=== PATIENT | male | born 1965 | race Caucasian/White ===

== ENCOUNTER 2020-05-01 10:17 | Emergency (ER) | payer OTHER, SELFPAY ==
[2020-05-01 10:26] VITALS: BP 134/78; PULSE 64; RESP 14; TEMP 36.6; O2SAT 95; BMI 35.0
--- NOTE | 2020-05-01 10:45 | XRR_ITS ---
PROCEDURE INFORMATION: Exam: XR Chest, 1 View Exam date and time: 05/01/2020 10:46 AM Age: 54 years old Clinical indication: Chest pain; Type not specified TECHNIQUE: Imaging protocol: XR of the chest Views: 1 view. COMPARISON: No relevant prior studies available. FINDINGS: Lungs: Unremarkable. No consolidation. Pleural space: Unremarkable. No pleural effusion. No pneumothorax. Heart/Mediastinum: Unremarkable. No cardiomegaly. Bones/joints: No acute findings. XR/XR chest 1V portable [id number] IMPRESSION: No acute findings.
--- NOTE | 2020-05-01 10:45 | ED_ITS ---
HPI - Chest Pain General: Chief Complaint: Chest Pain Stated Complaint: Chest Pain Time Seen by Provider: 05/01/20 10:44 History of Present Illness: HPI narrative: 54-year-old male presents with complaints of left-sided chest pain. Not had any radiation of the chest pain he had over the weekend. He did get some nausea with it no diaphoresis no shortness of breath no vomiting. Is not previously had any chest pain or evaluation for cardiac issues. MD complaint: chest pain Onset (ago): day(s) Timing of current episode: episodic and now resolved Onset: during rest and during exertion Pain location: left chest Pain radiation: none Severity: mild Quality: tightness and heaviness Relieving factors: nothing Exacerbating factors: nothing Associated symptoms: Deny abdominal pain, diaphoresis, dyspnea, fever(s), leg edema, nausea, palpitations, sense of impending doom, syncope or vomiting Treatment prior to arrival: none Review of Systems Const: Denies: fever(s) or diaphoresis ENMT: Denies: throat pain, ear or mastoid pain, nasal discharge or nasal congestion Card: Denies: palpitations or syncope Resp: Denies: dyspnea GI: Denies: abdominal pain, nausea or vomiting : Denies: flank pain, dysuria, urinary frequency or urinary urgency Skin/Breast: Denies: rash or pruritus Physical Exam Const: COMMON NORMALS: no acute distress GENERAL APPEARANCE: cooperative and comfortable ORIENTATION/CONSCIOUSNESS: Yes awake, Yes oriented to person, Yes oriented to place and Yes oriented to time HENMT: COMMON NORMALS: normocephalic, atraumatic and hearing grossly normal bilaterally HEAD & SCALP: normocephalic and atraumatic Eye: COMMON NORMALS: Equal, round and reactive pupils present, EOMs intact bilaterally, conjunctivae normal and no scleral icterus CONJUNCTIVA: Yes conjunctivae normal PUPIL: Yes Equal, round and reactive pupils present Neck/C-Spine: COMMON NORMALS: full ROM, no lymphadenopathy, supple and no JVD Lymph: LYMPHATIC: no lymphadenopathy noted and no lymphedema noted Resp: COMMON NORMALS: normal respiratory effort, No retractions, No use of accessory muscles and clear to auscultation bilaterally AUSCULTATION: clear to auscultation bilaterally Cardio: COMMON NORMALS: no JVD, regular rate, regular rhythm and No murmurs present (Cardio) RATE: regular rate RHYTHM: regular rhythm GI: COMMON NORMALS: Soft to palpation and No hepatosplenomegaly present AUSCULTATION: Yes normoactive bowel sounds PALPATION: Yes Soft to palpation, No Tenderness to palpation present (GI), No Guarding due to palpation present (GI) and Yes No hepatosplenomegaly present Extremity: COMMON NORMALS: normal to inspection, capillary refill normal, no clubbing, cyanosis or edema, no calf tenderness and no pedal edema Neuro: SENSORIUM/ORIENTATION: Yes oriented to person, Yes oriented to place and Yes oriented to time Skin: COMMON NORMALS: no rashes or lesions noted GENERAL SKIN EXAM: no rashes or lesions noted Course Vital Signs: Vital signs: Vital Signs Temperature 97.9 F 05/01/20 10:26 Pulse Rate 78 05/01/20 14:34 Respiratory Rate 15 05/01/20 14:34 Blood Pressure 145/78 05/01/20 14:34 Pulse Oximetry 97 05/01/20 14:34 MDM - Chest Pain MDM Narrative: Medical decision making narrative: Delta troponin does not indicate any acute event. We will go ahead and discharge patient home set up for outpatient stress testing did asked patient continue his current medications as well as a baby aspirin daily return if has any further problems follow-up with his primary care doctor after stress testing Lab Data: Labs: Lab Results 05/01/20 05/01/20 05/01/20 Range/Units 10:40 10:40 10:40 WBC 6.1 (4.0-10.0) 10^3/ uL RBC 4.62 (4.1-5.3) 10^6/u L Hgb 13.8 (11.7-16.6) g/dL Hct 43.0 (42.0-52.0) % MCV 93.1 (80-94) fL MCH 29.9 (28.0-34.0) pg MCHC 32.1 (30.0-36.0) g/dL RDW 12.8 (12.1-15.1) % Plt Count 207 (130-400) 10^3/c mm MPV 11.2 H (7.4-10.4) fL Neut % (Auto) 52.3 % Lymph % (Auto) 33.8 % [place] % (Auto) 11.6 % Eos % (Auto) 1.3 % Baso % (Auto) 0.8 % Neut # (Auto) 3.17 (1.8-7.7) 10^3/u L Lymph # (Auto) 2.1 (0.8-4.8) 10^3/u L [place] # (Auto) 0.7 (0.2-0.9) 10^3/u L Eos # (Auto) 0.1 (0.0-0.8) 10^3/u L Baso # (Auto) 0.1 (0.0-0.1) 10^3/u L Nucleated RBC % (a uto) 0 % Nucleated RBCs # 0.0 /100WBC Sodium Cancelled Potassium Cancelled Chloride Cancelled Carbon Dioxide Cancelled Anion Gap Cancelled BUN Cancelled Creatinine Cancelled GFR Calculation Cancelled Glucose Cancelled Calculated Osmolal ity Cancelled Calcium Cancelled Total Bilirubin Cancelled AST Cancelled ALT Cancelled Alkaline Phosphata se Cancelled Troponin T Baselin e Cancelled Troponin T 120 Min elim ira (0-15) ng/L Delta Troponin T (0-10) ABS# Total Protein Cancelled Albumin Cancelled Globulin Cancelled Lipase Cancelled 05/01/20 05/01/20 05/01/20 Range/Units 11:45 11:45 13:40 WBC (4.0-10.0) 10^3/ uL RBC (4.1-5.3) 10^6/u L Hgb (11.7-16.6) g/dL Hct (42.0-52.0) % MCV (80-94) fL MCH (28.0-34.0) pg MCHC (30.0-36.0) g/dL RDW (12.1-15.1) % Plt Count (130-400) 10^3/c mm MPV (7.4-10.4) fL Neut % (Auto) % Lymph % (Auto) % [place] % (Auto) % Eos % (Auto) % Baso % (Auto) % Neut # (Auto) (1.8-7.7) 10^3/u L Lymph # (Auto) (0.8-4.8) 10^3/u L [place] # (Auto) (0.2-0.9) 10^3/u L Eos # (Auto) (0.0-0.8) 10^3/u L Baso # (Auto) (0.0-0.1) 10^3/u L Nucleated RBC % (a uto) % Nucleated RBCs # /100WBC Sodium 140 Potassium 4.0 Chloride 104 Carbon Dioxide 26 Anion Gap 14.0 BUN 16 Creatinine 0.9 GFR Calculation 87.9 L Glucose 93 Calculated Osmolal ity 291 Calcium 9.4 Total Bilirubin 0.2 AST 28 ALT 32 Alkaline Phosphata se 59 Troponin T Baselin e 8 Troponin T 120 Min elim ira 6.12 (0-15) ng/L Delta Troponin T -1.88 L (0-10) ABS# Total Protein 6.8 Albumin 4.1 Globulin 2.7 Lipase 52 Discharge Plan Discharge Patient Disposition: Home Clinical Impression: Atypical chest pain Condition: Stable Prescriptions: No Action Lipitor 20 mg Tablet 10 mg PO QPM RF: 0 Prozac 10 mg Capsule 10 mg PO DAILY RF: 0 hydrochlorothiazide 25 mg Tablet 25 mg PO DAILY RF: 0 albuterol sulfate 90 mcg/actuation Hfa Aerosol Inhaler 2 puff INHALATION QID PRN (Reason: Shortness Of Breath) RF: 0 Celebrex 100 mg Capsule 100 mg PO DAILY PRN (Reason: unknown) RF: 0 budesonide-formoterol 160-4.5 mcg/actuation Hfa Aerosol Inhaler 2 puff INHALATION BID RF: 0 Vitamin D3 1 cap PO DAILY RF: 0 aspirin See Rx Instructions .ROUTE .COMPLEX RF: 0 Discharge Orders: Discharge Order (Routine); Ordered 05/01/20 Ordered By: Rl West Discharge Diet: Usual diet Discharge Activity: Limit activity as instructed Activity Restrictions/Additional Instructions: With exertional activity. Continue aspirin. Case management will call to set you up for stress test. Discharge Date/Time: 05/01/20 14:34 Coding Level of Care Code ED Groundskeeping Maintenance for Mitch Kelly
--- NOTE | 2020-05-01 10:45 | ECG_ITS ---
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 Measurements Intervals [place] Rate: 86 P: 26 MS: 170 QRS: -2 QRSD: 87 T: 8 QT: 267 QTc: 321 Interpretive Statements SINUS RHYTHM WITH OCCASIONAL VENTRICULAR PREMATURE COMPLEXES WITH FREQUENT SUPRAVENTRICULAR PREMATURE COMPLEXES NONSPECIFIC T-WAVE ABNORMALITY ABNORMAL RHYTHM ECG No previous ECG available for comparison Electronically Signed On 05-01-2020 21:40:09 CDT by Hayden Wiley M.D. [id number]
[2020-05-01 10:58] LABS: Basophils # 0.1 10^3/uL (0.0-0.1); Basophils % 0.8 %; Eosinophils # 0.1 10^3/uL (0.0-0.8); Eosinophils % 1.3 %; Hemoglobin 13.8 g/dL (11.7-16.6); Lymphocytes # 2.1 10^3/uL (0.8-4.8); Lymphocytes % 33.8 %; Mean Corpuscular HGB Conc 32.1 g/dL (30.0-36.0); Mean Corpuscular Hemoglobin 29.9 pg (28.0-34.0); Mean Corpuscular Volume 93.1 fL (80-94); Mean Platelet Volume 11.2 fL (7.4-10.4); Monocytes # 0.7 10^3/uL (0.2-0.9); Monocytes % 11.6 %; Neutrophils # 3.17 10^3/uL (1.8-7.7); Neutrophils % 52.3 %; Nucleated Red Blood Cells % 0 %; Platelet Count 207 10^3/cmm (130-400); Red Blood Count 4.62 10^6/uL (4.1-5.3); Red Cell Distribution Width 12.8 % (12.1-15.1); White Blood Count 6.1 10^3/uL (4.0-10.0)
[2020-05-01 12:02] VITALS: BP 132/66; PULSE 86; RESP 20; O2SAT 97
[2020-05-01 12:27] LABS: Alanine Aminotransferase 32 U/L (0-41); Albumin Level 4.1 g/dL (3.5-5.2); Alkaline Phosphatase 59 IU/L (40-130); Aspartate Amino Transferase 28 U/L (0-40); Blood Urea Nitrogen 16 mg/dL (6-20); Calcium 9.4 mg/dL (8.5-10.5); Carbon Dioxide 26 mmol/L (22-29); Chloride 104 mmol/L (98-107); Globulin 2.7 g/dL (1.3-4.6); Glomerular Filtration Rate 87.9 mL/min (90-130); Glucose 93 mg/dL (65-115); Lipase 52 U/L (13-60); Osmolality Calculated 291 mOsm/kg (285-295); Sodium 140 mmol/L (136-145); Total Bilirubin 0.2 mg/dL (0.15-1.2); Total Protein 6.8 g/dL (6.6-8.7); Troponin(5th) Baseline 8 ng/L (0-15)
--- NOTE | 2020-05-01 12:45 | ECG_ITS ---
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 Measurements Intervals [place] Rate: 66 P: 29 ID: 161 QRS: 12 QRSD: 101 T: 18 QT: 420 QTc: 441 Interpretive Statements SINUS RHYTHM WITH OCCASIONAL SUPRAVENTRICULAR PREMATURE COMPLEXES Compared to ECG 05/01/2020 10:17:35 Ventricular premature complex(es) no longer present T-wave abnormality no longer present Electronically Signed On 05-01-2020 21:46:45 CDT by Hayden Wiley M.D. [id number]
[2020-05-01 13:32] VITALS: BP 119/87; PULSE 67; RESP 16; O2SAT 95
[2020-05-01 14:06] LABS: Troponin 5 2HR 6.12 ng/L (0-15)
[2020-05-01 14:08] LABS: Troponin 5 2HR Delta -1.88 ABS# (0-10)
[2020-05-01 14:34] VITALS: BP 145/78; PULSE 78; RESP 15; O2SAT 97
--- NOTE | 2020-05-02 11:13 | DCPLANNER ---
fitness manager had message to schedule an out patient stress test, patient has [facility] insurance. fitness manager can not order a stress test from the ER, patient will need to be referred to cardiology, and if cardiology wants a stress test then it can be ordered from a fish hatchery superintendent. fitness manager called [facility], spoke with Mariana, a follow up appointment was scheduled for Saturday, May 09, 2020 at 3:[address] Rosario. fitness manager called patient with appointment information, patient stated that he would attend the appointment. fitness manager called Shari with [facility], informed her that patient was seen in the ED and the reason that patient was seen in the ED. fitness manager emailed Shari, patients records over a secure email. fitness manager also gave Shari the appointment information for patient with [facility].
--- NOTE | 2020-05-12 11:42 | DCPLANNER ---
Patient had a follow up appointment scheduled for 05.09.20 with [facility] - patient did attend appointment.
== END 2020-05-01 14:34 | disposition home or self-care (01) ==
PROVIDERS: Emergency Provider Family Medicine
DX: R07.89 Other chest pain (principal); Z79.82 Long term (current) use of aspirin
CPT/HCPCS: 12345; 36415; 71045; 80053; 83690; 84484; 85025; 93005; 99282; 99283

== ENCOUNTER 2020-08-30 07:06 | Outpatient (CLI) | payer OTHER, SELFPAY ==
[2020-08-30 07:28] VITALS: BMI 34.7
--- NOTE | 2020-08-30 08:53 | ECG_ITS ---
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 Interpretive Statements NAME OF STUDY: EXERCISE SESTAMIBI STRESS TEST INDICATION: [Chest Pain, ] Procedure: At the baseline, the blood pressure was 139/99 mmHg, oxygen saturation 96% with a heart rate of 66 bpm. The electrocardiogram showed normal sinus rhythm, normal with normal ST and T waves. Patient exercised for a total of 8 minutes, reaching 10.2 METS. Heart rate at the peak stress phase was 153 bpm that was 93% of maximum predicted heart rate. At the end of stress phase, blood pressure of 157/85 mmHg. The EKG at the peak infusion revealed sinus rhythm with no significant ST-T wave changes. Blood pressure at the end of the recovery phase was 153/91mmHg with a heart rate of 96 bpm. Conclusion: 1. Normal EKG response to exercise.No ischemic features noted with exercise 2. No Lexiscan induced chest pain or cardiac arrhythmia. 3. Normal blood pressure and heart rate response. 4. Sestamibi/sestamibi perfusion scan pending; see separate report. Electronically Signed On 09-24-2020 17:27:10 CDT by Wilton Rosario M.D. [id number]
--- NOTE | 2020-08-30 08:53 | NMCV_ITS ---
NM cristela perf SPECT r/s* [id number] Ghassan Dejesus Age: 55 Gender: M : 1965 Exam Date: 08/30/2020 08:55 Ordering Phys: Wilton Rosario M.D ([email or web address]) Technologist: OLGA Mcallister Exam Location: [facility] Indications: CHEST PAIN STRESS TEST [facility] IMAGE PROTOCOL Rest/Stress 1 Lexiscan Day Radiopharmaceutical Dose (mCi) Administration Site Administered by Rest: Tc-99m 10.9 IV OLGA Joshua Sestamibi Stress:Tc-99m 32.5 IV OLGA Joshua Sestamibi Rest: 30-Aug-2020 60 Discovery 630 Stress: 30-Aug-2020 30 Discovery 630 0.4mg Lexiscan. Images obtained in supine and prone position. SPECT RESULTS Technical Quality: Excellent Raw Data Analysis: Normal Image Corrections: No attenuation or motion correction applied Summed Stress Score: 0 Summed Rest Score: 0 Summed Difference Score: 0 PERFUSION FINDINGS There is homogenous radiotracer uptake throughout the myocardium. No evidence of ischemia FUNCTIONAL RESULTS (calculated via Gated SPECT) Stress Image LV EF (%): 62 Stress EDV (mL):76 TID: 1.06 Stress ESV (mL):29 FUNCTIONAL FINDINGS: There is normal left ventricular systolic function with EF of 62%. IMPRESSIONS 1. Normal myocardial perfusion imaging without evidence of ischemia 2. LV systolic function is normal Wilton Rosario MD (Electronically Signed) Final Date: 30 August 2020 11:35 S
[2020-08-30 09:53] VITALS: BP 151/93; PULSE 96
== END 2020-08-30 07:07 | disposition home or self-care (01) ==
LOC: RAD 07:09 → CDL 07:14
PROVIDERS: Visit Provider Internal Medicine
DX: R07.89 Other chest pain (principal)
CPT/HCPCS: 78452; 93017; A9500

== ENCOUNTER → 2021-04-19 11:21 | Outpatient (BNVA) | payer OTHER, SELFPAY | PROVIDERS: PCP Nurse Practitioner; Visit Provider Specialist | DX: Z01.818 Encounter for other preprocedural examination (principal); Z20.822 Contact with and (suspected) exposure to COVID-19 | CPT/HCPCS: 87635 ==

== ENCOUNTER → 2021-04-20 11:21 | Outpatient (BNVA) | payer OTHER, SELFPAY | PROVIDERS: PCP Nurse Practitioner; Visit Provider Specialist | DX: Z01.818 Encounter for other preprocedural examination (principal); Z20.822 Contact with and (suspected) exposure to COVID-19 | CPT/HCPCS: 87635 ==

== ENCOUNTER 2021-04-24 05:16 | Day surgery (SDC) | payer OTHER, SELFPAY ==
[2021-04-23 11:49] VITALS: BMI 36.0
[2021-04-24] VITALS (9 sets, daily range): BP systolic 116–153; BP diastolic 67–99; PULSE 71–80; RESP 14–20; TEMP 36.1–36.6; O2SAT 93–98
[2021-04-24] MEDS: acetaminophen 1,000 MG/100 ML PIGGYBACK 400 MG IV (05:59)
[2021-04-24] MEDS: sodium chloride 0.9% 1,000 ML 30 ML IV (05:59)
--- NOTE | 2021-04-24 06:17 | ANES.PREANE2 ---
Pre-Anesthetic Assessment Pre-Anesthetic Assessment: Height/Weight: Height 1.63 m Weight 95.254 kg Temp Pulse Resp BP Pulse Ox 97.8 F 71 16 153/99 97 04/24/21 06:02 04/24/21 06:02 04/24/21 06:02 04/24/21 06:02 04/24/21 06:02 Preop Diagnosis: Rotator cuff tear left with impingement, osteoarthritis AC joint Proposed Procedure: Operation Date: 04/24/21 07:00 Proposed Procedures p Rotator Cuff Repair [id number] S49.90XA M75.42 M19.012 M75.100(Left) - Jodee Ordonez MD s Acromioplasty(Left) - Jodee Ordonez MD s Distal Clavicle Resection(Left) - Jodee Ordonez MD Familial anesthetic complications: none Was Beta Adrianna taken within 24 hours: N/A Was Clonidine taken within 24 hours: N/A Last intake: Intake Last Liquid Date 04/23/21 Last Liquid Time 20:00 Last Solid Date 04/23/21 Last Solid Time 20:00 Social: Social History: No alcohol and No tobacco Exam: Pre-Anes Outpt Exam: alert, oriented x 3, clear to auscultation bilaterally and regular rate & rhythm Airway: Cervical ROM: WNL MP: 4 Dentition: Full Pulmonary: Pulmonary: Asthma (symbicort daily - hasn't used rescue inhaler in months ) CV/HEM: CV/HEM: HTN Comments: 08/30/20 EXERCISE STRESS TEST IMPRESSIONS 1. Normal myocardial perfusion imaging without evidence of ischemia 2. LV systolic function is normal Metabolic: Metabolic: Hyperlipidemia Anesthetic Plan: ASA status: 2 Anesthesia: General and Regional (specify below) Risk of > 500 ml blood loss (7ml/kg in children): No Meds/Allergies Current Medications: Current Medications Generic Name Dose Route Start Last Admin Trade Name Freq PRN Reason Stop Dose Admin Sodium Chloride 1,000 mls @ 30 ml s/hr 04/24/21 05:30 04/24/21 05:59 Sodium Chloride 0.9% IV 04/25/21 05:29 30 mls/hr .Q24H POPPY Administration PFSH Anesthesia PFSH: Medical History Hyperlipidemia Hypertension Family History Father Hypertension CAD (coronary artery disease) Data Anesthesia CBC & Chem 7: 04/24/21 05:52 04/24/21 05:52 Cardiac Studies: No Data to Display
[2021-04-24 06:26] LABS: Basophils # 0.1 10^3/uL (0.0-0.1); Basophils % 0.7 %; Eosinophils # 0.2 10^3/uL (0.0-0.8); Eosinophils % 2.9 %; Hematocrit 45.3 % (42.0-52.0); Hemoglobin 14.9 g/dL (11.7-16.6); Lymphocytes # 2.4 10^3/uL (0.8-4.8); Lymphocytes % 34.6 %; Mean Corpuscular HGB Conc 32.9 g/dL (30.0-36.0); Mean Corpuscular Hemoglobin 29.6 pg (28.0-34.0); Mean Corpuscular Volume 90.1 fl (80-94); Mean Platelet Volume 10.3 fL (7.4-10.4); Monocytes # 0.7 10^3/uL (0.2-0.9); Monocytes % 10.7 %; Neutrophils # 3.52 10^3/uL (1.8-7.7); Neutrophils % 50.8 %; Nucleated Red Blood Cells % 0 %; Platelet Count 242 10^3/cmm (130-400); Red Blood Count 5.03 10^6/uL (4.1-5.3); Red Cell Distribution Width 12.9 % (12.1-15.1); White Blood Count 6.9 10^3/uL (4.0-10.0)
[2021-04-24 06:44] LABS: Alanine Aminotransferase 52 U/L (0-41); Albumin Level 4.3 g/dL (3.5-5.2); Alkaline Phosphatase 57 IU/L (40-130); Aspartate Amino Transferase 28 U/L (0-40); Blood Urea Nitrogen 25 mg/dL (6-20); Calcium 9.1 mg/dL (8.5-10.5); Carbon Dioxide 24 mmol/L (22-29); Chloride 105 mmol/L (98-107); Glomerular Filtration Rate 100.4 mL/min (90-130); Glucose 95 mg/dL (65-115); Osmolality Calculated 290 mOsm/kg (285-295); Sodium 138 mmol/L (136-145); Total Bilirubin 0.3 mg/dL (0.15-1.2); Total Protein 7.3 g/dL (6.6-8.7)
--- NOTE | 2021-04-24 06:50 | W.PM.OPSUD ---
Surgery/Procedure H&P Update DATE OF PROCEDURE: April 24, 2021 DATE H&P PERFORMED: 04/19/21 H&P UPDATE INFORMATION: I have reviewed H&P completed within last 30 days, I have examined patient prior to procedure, No changes to prior documentation and H&P is in [facility] EMR on date indicated PREOP DIAGNOSIS: Rotator cuff tear left with impingement, osteoarthritis AC joint PLANNED PROCEDURE: Operation Date: 04/24/21 07:00 Proposed Procedures p Rotator Cuff Repair [id number] S49.90XA M75.42 M19.012 M75.100(Left) - Jodee Ordonez MD s Acromioplasty(Left) - Jodee Ordonez MD s Distal Clavicle Resection(Left) - Jodee Ordonez MD Related Problem List Diagnoses (1) Osteoarthritis of left AC (acromioclavicular) joint: (2) Rotator cuff tear: Qualifiers: Rotator cuff tear extent: complete Rotator cuff tear trauma status: traumatic Encounter type: initial encounter Laterality: left Qualified Code(s): S46.012A - Strain of muscle(s) and tendon(s) of the rotator cuff of left shoulder, initial encounter (3) Shoulder impingement: Qualifiers: Laterality: left Qualified Code(s): M75.42 - Impingement syndrome of left shoulder
[2021-04-24] MEDS: midazolam 1 mg/mL INJ 2 mL 2 MG IVP (07:03)
--- NOTE | 2021-04-24 07:12 | ANES.PROC ---
Anesthesia Procedures Procedure/Date: 04/24/21 Nerve Block ^: Nerve Block 1: Main Anesthesia: general anesthesia Time Out Performed: Yes Consent: requested by attending/covering physician, from patient, risks and benefits reviewed and patient agrees to proceed Nerve block location: interscalene (L) Anesthesia monitors applied: pulse oximetry, EKG, BP cuff and oxygen Nerve block position: supine Anesthetic Used: ropivicaine 0.5% and with decadron (4) Amount of anesthesia used (mL): 30 Ultrasound used to: recognize landmarks, visualize and ID brachial plexus, in supraclavicular region and visualize and ID interscalene groove Nerve Stimulator Used?: No Interscalene/Femoral BLK: 2 stimuplex 22 g needle used for position and inplane approach, visualize local anesthetic spread and no vascular puncture identified Injection: neg aspiration of heme and paresthesia +/- Patient Tolerated Procedure: well and no complications Complications: none
[2021-04-24] MEDS: ceFAZolin 1,000 mg SDV 1000 MG IRRIGATION (08:19)
[2021-04-24] MEDS: ondansetron 2 mg/ML SDV 2 mL 4 MG IVP ×2 (10:00→10:08)
--- NOTE | 2021-04-24 10:07 | PM.OP ---
Operative Report Date of procedure: April 24, 2021 Pre-op Diagnosis: Rotator cuff tear left with impingement, osteoarthritis AC joint Post-op diagnosis: same Post-op Findings: Large rotator cuff tear involving nearly the entire supraspinatus tendon. Significant impingement from the acromion, and significant degenerative osteoarthritis of the acromioclavicular joint. Procedure Done: Left rotator cuff repair with acromioplasty and distal clavicle resection Implants: [place] Biosteon 5.5 mm force fiber anchors x2 Specimens removed/disposition: None Pathology: none sent Surgeon: Jodee Ordonez Component Technician: [facility] operating room technicians Anesthesia: General (Regional preoperative block) Estimated blood loss (mL): 50 IV fluids (mL): 600 Urine output (mL): 0 Urine output: No Treviño Complications: None Findings: Large rotator cuff tear involving the supraspinatus tendon. Intact biceps tendon. Significant impingement from the acromion. Significant osteoarthritis of the acromioclavicular joint. Condition: stable Disposition: PACU (Then to same-day surgery for discharge to home I was thinking) Brief History: This 55-year-old gentleman presented with complaints of significant pain and MRI findings consistent with rotator cuff tear. He also had significant osteophytes on the inferior aspect of the acromion and significant degenerative osteoarthritis of the acromioclavicular joint. The patient after discussion wished to proceed with operative intervention in the form of an open rotator cuff repair with resection of distal clavicle and acromioplasty. Risks and complications were discussed. This consents were signed. Procedure: The patient was brought to the operating theater and underwent general intubated anesthesia, ASA 2, with a preoperative interscalene block placed in the preoperative holding area by anesthesia. The patient was placed in a beachchair position and subsequently the left upper extremity was prepped and draped in the usual fashion utilizing DuraPrep. The arm was draped free. A surgical pause was performed prior to commencement of the surgical procedure. At the time of the surgical pause, we confirmed the site and side of surgery as well as administration of appropriate preoperative antibiotics, Ancef 2 g. MRI was also reviewed at that time. Following the surgical pause, an incision was made at approximately the level of the acromioclavicular joint extending across the anterolateral corner of the acromion and distally as necessary. Care was taken to avoid injury to the axillary nerve by limiting the distal extent of the incision. Dissection continued through skin and soft tissues using a scalpel. Hemostasis was obtained using electrocautery. Soft tissues were elevated off the acromion. An acromioplasty was then accomplished using a combination of a saw and a power rasp. With this, we were able to remove compression caused by the acromion. The rotator cuff was then evaluated to look for tears. There was significant impingement from the acromion prior to resection. Following resection, I could easily place my finger between the acromion and the rotator cuff. The rotator cuff tear was evaluated. There was a large tear noted involving primarily the supraspinatus tendon. Biceps tendon was noted to be intact. A partial bursectomy was accomplished as well at this time. The edges were freshened using a scalpel. The reattachment point bony on the humeral head was addressed with a ronguer to prepare a bed for appropriate repair. Repair was accomplished using the Biosteon [place] anchor with 2 force fiber spur anchor. 2 anchors were utilized. The tear orientation was noted to be primarily transverse. Following repair with the anchors, the edge was repaired further utilizing 0 Ethibond. After the rotator cuff had been thus addressed, the shoulder was placed through further range of motion to assure there was no further evidence of rotator cuff tear. The acromioclavicular joint was exposed. A saw was then used to resect the distal clavicle without difficulty. The undersurface of the clavicle was palpated and was slightly further debrided. A power rasp was used to further smooth the area. When this was felt to be adequately resected, the wound was irrigated. Attention was then directed to closure. The wound was irrigated and closure was accomplished with 0 Vicryl in the capsular tissues overlying the acromioclavicular joint area as well as over the acromion and down into the deltoid muscle. 3-0 Monocryl was used to close the subcutaneous tissues followed by 4-0 Monocryl subcuticular closure. This was followed by Dermabond, Steri-Strips, Telfa, and Tegaderm. The patient was placed in a slingshot style sling. He was returned to recovery room in a satisfactory condition. Following his recovery, he was returned to preop surgery area for discharge to home. He is to follow-up with me in the office in approximately 15 days. There were no complications and no specimens. Associated Problem List Diagnoses (1) Osteoarthritis of left AC (acromioclavicular) joint: (2) Rotator cuff tear: Qualifiers: Rotator cuff tear extent: complete Rotator cuff tear trauma status: traumatic Encounter type: initial encounter Laterality: left Qualified Code(s): S46.012A - Strain of muscle(s) and tendon(s) of the rotator cuff of left shoulder, initial encounter (3) Shoulder impingement: Qualifiers: Laterality: left Qualified Code(s): M75.42 - Impingement syndrome of left shoulder
[2021-04-24] MEDS: metoclopramide 5 mg/mL SDV 2 mL 10 MG IVP (10:39)
== END 2021-04-24 11:40 | disposition home or self-care (01) ==
PROVIDERS: PCP Nurse Practitioner; Visit Provider Specialist
PROC: (CPT 23120; principal; 2021-04-24 07:00)
PROC: (CPT 23130; 2021-04-24 07:00)
PROC: (CPT 23120; 2021-04-24 07:00)
DX: M75.102 Unspecified rotator cuff tear or rupture of left shoulder, not specified as traumatic (principal); M75.42 Impingement syndrome of left shoulder; M19.012 Primary osteoarthritis, left shoulder; E78.5 Hyperlipidemia, unspecified; I10 Essential (primary) hypertension; Z82.49 Family history of ischemic heart disease and other diseases of the circulatory system
CPT/HCPCS: 23120; 23130; 23412; 64415; 76942; 80053; 85025; 96365; 96374; C1713; J0690; J1100; J2250; J2405; J2704; J2765; J2795; J3010; J3490; J7030

== ENCOUNTER 2021-05-16 11:42 | Outpatient (RCR) | payer OTHER, SELFPAY | END 2021-06-12 23:59 | disposition home or self-care (01) | LOC: SPT 11:42 | PROVIDERS: PCP Nurse Practitioner; Referring Provider Nurse Practitioner; Visit Provider Nurse Practitioner | DX: M25.512 Pain in left shoulder (principal) | CPT/HCPCS: 97110; 97161 ==

== ENCOUNTER 2021-06-13 06:00 | Outpatient (RCR) | payer OTHER, SELFPAY | END 2021-07-13 23:59 | disposition home or self-care (01) | LOC: SPT 06:00 | PROVIDERS: PCP Nurse Practitioner; Referring Provider Nurse Practitioner; Visit Provider Nurse Practitioner | DX: M25.512 Pain in left shoulder (principal) | CPT/HCPCS: 97110 ==

== ENCOUNTER 2022-02-18 05:18 | Day surgery (SDC) | payer OTHER, SELFPAY ==
[2022-02-14 10:16] VITALS: BMI 32.5
[2022-02-18 06:03] VITALS: BP 124/86; PULSE 62; RESP 18; TEMP 36.1; O2SAT 99
[2022-02-18] MEDS: sodium chloride 0.9% 1,000 ML 30 ML IV (06:10)
--- NOTE | 2022-02-18 06:49 | ANES.PREANE2 ---
Pre-Anesthetic Assessment Height/Weight: Height 1.63 m Weight 86.183 kg Temp Pulse Resp BP Pulse Ox O2 Del Method 97 F L 62 18 124/86 99 02/18/22 06:03 02/18/22 06:03 02/18/22 06:03 02/18/22 06:03 02/18/22 06:03 02/18/22 06:03 Preop Diagnosis: Hematochezia Operation Date: 02/18/22 07:00 Proposed Procedures p Colonoscopy 82788,K92.1(Not Applicable) - Benjamin White MD Familial anesthetic complications: none Was Beta Adrianna taken within 24 hours: N/A Was Clonidine taken within 24 hours: N/A Last intake: Intake Last Liquid Date 02/17/22 Last Liquid Time 22:00 Last Solid Date 02/16/22 Last Solid Time 22:00 Last Intake: 22:00 Social No alcohol and No tobacco Exam alert and oriented x 3 Airway Dentition: full and other (bridge- non-removable) History/ROS No significant history except as noted Pulmonary Asthma CV/HEM Hypertension None reported Hepatic None reported GI None reported Metabolic Hyperlipidemia [facility]/skel Lower Back Pain and Osteoarthritis/DJD Neuropsych None reported Anesthetic Plan ASA status: 2 Anesthesia: Anesthesia Evaluation and MAC Risk of > 500 ml blood loss (7ml/kg in children): No Medications/Allergies Home Medications Medication Instructions Recorded Confirmed Last Taken Type atorvastatin 20 mg tablet (Lipitor) 10 mg PO QPM 05/01/20 02/14/22 02/16/22 History celecoxib 100 mg capsule (Celebrex) 100 mg PO DAILY PRN unknown 05/01/20 02/14/22 Unknown History hydrochlorothiazide 25 mg tablet 25 mg PO DAILY 05/01/20 02/14/22 02/16/22 History alprazolam 1 mg tablet 1 mg PO ONCE PRN Anxiety 12/24/21 02/14/22 Unknown History fluticasone 250 mcg-salmeterol 50 1 inh inhalation BID 12/24/21 02/14/22 Unknown History mcg/dose blistr powdr for inhalation sildenafil 100 mg tablet 100 mg PO DAILY PRN Sexual Activity 12/24/21 02/14/22 Unknown History Allergies Allergy/AdvReac Type Severity Reaction Status Date / Time ibuprofen Allergy ALGY-Anaphy Verified 01/23/22 14:54 laxis melarone Allergy ALGY-Anaphy Uncoded 01/23/22 14:54 laxis Current Medications Generic Name Dose Route Start Last Admin Trade Name Freq PRN Reason Stop Dose Admin Sodium Chloride 1,000 mls @ 30 mls/hr 02/18/22 06:00 02/18/22 06:10 Sodium Chloride 0.9% IV 30 mls/hr .Q24H POPPY Administration PFSH Anesthesia Medical History Hyperlipidemia Hypertension Family History Father Hypertension CAD (coronary artery disease) Data Anesthesia Cardiac Studies: Sestamibi Stress Test (Cardiology) 08/30/20
--- NOTE | 2022-02-18 07:18 | P.HP_ITS ---
Same Day Surgery H&P Indication for Procedure/HPI DATE OF PROCEDURE: February 18, 2022 CHIEF COMPLAINT/INDICATIONFOR SURGICAL PROCEDURE: Hematochezia PREOP DIAGNOSIS: Hematochezia PLANNED PROCEDURE: Operation Date: 02/18/22 07:00 Proposed Procedures p Colonoscopy 75862,K92.1(Not Applicable) - Benjamin White MD Medications/Allergies* Home Medications Medication Instructions Recorded Confirmed Type atorvastatin 20 mg tablet (Lipitor) 10 mg PO QPM 05/01/20 02/14/22 History celecoxib 100 mg capsule (Celebrex) 100 mg PO DAILY PRN unknown 05/01/20 02/14/22 History hydrochlorothiazide 25 mg tablet 25 mg PO DAILY 05/01/20 02/14/22 History alprazolam 1 mg tablet 1 mg PO ONCE PRN Anxiety 12/24/21 02/14/22 History fluticasone 250 mcg-salmeterol 50 1 inh inhalation BID 12/24/21 02/14/22 History mcg/dose blistr powdr for inhalation sildenafil 100 mg tablet 100 mg PO DAILY PRN Sexual Activity 12/24/21 02/14/22 History Allergies/Adverse Reactions Allergy/AdvReac Type Severity Reaction Status Date / Time ibuprofen Allergy ALGY-Anaphy Verified 01/23/22 14:54 laxis melarone Allergy ALGY-Anaphy Uncoded 01/23/22 14:54 laxis Current Medications: Generic Name Dose Route Start Last Admin Trade Name Freq PRN Reason Stop Dose Admin Sodium Chloride 1,000 mls @ 30 mls/hr 02/18/22 06:00 02/18/22 06:10 Sodium Chloride 0.9% IV 30 mls/hr .Q24H POPPY Administration Pertinent History/Comorbid Conditions* Medical History (Updated 01/23/22 @ 15:35 by Benjamin White MD) Hyperlipidemia Hypertension Family History (Updated 05/12/20 @ 09:55 by Wilton Rosario M.D) CAD (coronary artery disease) Father Hypertension Father Pertinent Exam Findings alert, oriented x 3, clear to auscultation bilaterally, regular rate & rhythm, operative site marked and procedure specific exam findings Recommendations Surgery/Procedure today Coding Level of Care Code Acute [employer] for Mitch Kelly
[2022-02-18 07:30] VITALS: BP 121/84; PULSE 62; RESP 16; TEMP 36.1; O2SAT 97
[2022-02-18 07:40] VITALS: BP 122/82; PULSE 57; RESP 18; O2SAT 97
--- NOTE | 2022-02-18 08:21 | ANE.PACU2 ---
Inpatient post-anesthesia follow up: Airway intact: Yes Vital signs: Temperature 97 F Pulse Rate 57 Respiratory Rate 18 Blood Pressure 122/82 Pulse Oximetry 97 Oxygen Delivery Me thod Room Air Oxygen Flow Rate Fraction of Inspir ed Oxygen Hydration adequate: Yes Nausea and vomiting: No Pain level: 1 Mental status: Baseline
== END 2022-02-18 07:55 | disposition home or self-care (01) ==
PROVIDERS: PCP Nurse Practitioner; Visit Provider Internal Medicine
PROC: 0DJD8ZZ Inspection of Lower Intestinal Tract, Via Natural or Artificial Opening Endoscopic (ICD-10-PCS; CPT 45378; principal; 2022-02-18 07:00)
DX: K92.1 Melena (principal); E78.5 Hyperlipidemia, unspecified; I10 Essential (primary) hypertension
CPT/HCPCS: 43235; J2704; J7030

== ENCOUNTER 2023-10-21 06:44 | Emergency (ER) | payer OTHER, SELFPAY ==
[2023-10-21 07:00] VITALS: BP 163/100; PULSE 86; RESP 20; TEMP 38; O2SAT 95
--- NOTE | 2023-10-21 07:01 | XRR_ITS ---
PROCEDURE INFORMATION: Exam: XR Chest Exam date and time: 10/21/2023 7:19 AM Age: 58 years old Clinical indication: Shortness of breath TECHNIQUE: Imaging protocol: Radiologic exam of the chest. Views: 1 view. COMPARISON: CR XR chest 1V [id number] 05/01/2020 10:45 AM FINDINGS: Lungs: Unremarkable. No consolidation. Pleural spaces: Unremarkable. No pleural effusion. No pneumothorax. Heart/Mediastinum: Unremarkable. No cardiomegaly. Bones/joints: Unremarkable. XR/XR chest 1V [id number] IMPRESSION: No acute findings.
--- NOTE | 2023-10-21 07:05 | W.ED.SOB ---
HPI - SOB/Dyspnea General: Chief Complaint: Shortness of Breath/Dyspnea Stated Complaint: sob, cough Time Seen by Provider: 10/21/23 07:02 History of Present Illness: HPI Narrative: 58-year-old man with a history of hypertension, hyperlipidemia and COPD who presents to the emergency room with cough and shortness of breath. He said he has been sick for about 3 to 4 days but got much worse overnight. He has a cough. Feels somewhat short of breath. No fevers. No altered mental status. No chest pain. No nausea or vomiting. Review of Systems Narrative: Constitutional symptoms: Negative except as documented in HPI. Skin symptoms: Negative except as documented in HPI. Eye symptoms: Negative except as documented in HPI. ENMT symptoms: Negative except as documented in HPI. Respiratory symptoms: Negative except as documented in HPI. Cardiovascular symptoms: Negative except as documented in HPI. Gastrointestinal symptoms: Negative except as documented in HPI. Genitourinary symptoms: Negative except as documented in HPI. Musculoskeletal symptoms: Negative except as documented in HPI. Neurologic symptoms: Negative except as documented in HPI. Psychiatric symptoms: Negative except as documented in HPI. Endocrine symptoms: Negative except as documented in HPI. [facility] ED PFSH: Medical History Hyperlipidemia Hypertension Family History Father Hypertension CAD (coronary artery disease) Physical Exam Narrative: EXAM NARRATIVE: General: Alert, no acute distress. Skin: Warm, dry. Head: Normocephalic, atraumatic. Neck: Supple, trachea midline. Eye: Extraocular movements are intact. Ears, nose, mouth and throat: mucosa moist. Cardiovascular: Regular, Normal peripheral perfusion. Respiratory: Frequent cough, tachypnea, mild scattered wheeze, breath sounds are equal, Symmetrical chest wall expansion. Gastrointestinal: Soft, Nontender, Non distended, Normal bowel sounds. Musculoskeletal: Normal ROM, no deformity. Neurological: Alert and oriented, No focal neurological deficit observed. Psychiatric: Cooperative, appropriate mood & affect. Course Vital Signs: Vital signs: Vital Signs Temperature 100.4 F H 10/21/23 07:00 Pulse Rate 89 10/21/23 08:13 Respiratory Rate 18 10/21/23 08:08 Blood Pressure 163/100 10/21/23 07:00 Pulse Oximetry 93 10/21/23 08:08 Oxygen Delivery Me thod Room Air 10/21/23 08:08 MDM - SOB/Dyspnea Medical Decision Making Differential diagnosis for patient with shortness of breath includes but is not limited to and based on the above HPI, review of systems and physical exam: Pneumonia. Bronchitis. Asthma or COPD with acute exacerbation. Acute coronary syndrome / SD. Pulmonary embolism. Anxiety. Congestive heart failure. Viral infections including influenza and Covid-19. Atrial fibrillation. Anxiety. Pleural effusion. Pneumothorax. Workup: Lab work, chest X-ray and EKG ordered to evaluate, rule in and rule out above pathologies Lab Review: Laboratory results were reviewed and interpreted by myself the emergency room physician. No leukocytosis. White count is 7.8. Hemoglobin is 13.5. BUN and creatinine are 17 and 0.9. He is flu and COVID-negative. Chest x-ray: No acute process. No infiltrate. No pneumothorax. No cardiomegaly. This was reviewed and interpreted by myself the ER physician. Reexamination: Patient remained stable. He does have a fever. Work of breathing is improved somewhat. Lab Data 10/21/23 07:19 10/21/23 07:19 Labs/Radiology: Radiology Impressions Chest X-Ray 10/21/23 07:01 IMPRESSION: No acute findings. Laboratory Results WBC 7.80 10^3/uL (3.29-11.43) 10/21/23 07:19 RBC 4.57 10^6/uL (3.85-5.65) 10/21/23 07:19 Hgb 13.50 g/dL (11.27-16.99) 10/21/23 07:19 Hct 41.0 % (37-53) 10/21/23 07:19 MCV 89.7 fl (82-101) 10/21/23 07:19 MCH 29.5 pg (27-33) 10/21/23 07:19 MCHC 32.9 g/dL (30-55) 10/21/23 07:19 RDW 13.2 % (12.1-15.1) 10/21/23 07:19 Plt Count 186 10^3/cmm (157-399) 10/21/23 07:19 MPV 10.2 fL (7.4-10.4) 10/21/23 07:19 Neut % (Auto) 79.2 % 10/21/23 07:19 Lymph % (Auto) 10.4 % 10/21/23 07:19 [place] % (Auto) 9.0 % 10/21/23 07:19 Eos % (Auto) 0.4 % 10/21/23 07:19 Baso % (Auto) 0.5 % 10/21/23 07:19 Neut # (Auto) 6.18 10^3/uL (1.8-7.7) 10/21/23 07:19 Lymph # (Auto) 0.8 10^3/uL (0.8-4.8) 10/21/23 07:19 [place] # (Auto) 0.7 10^3/uL (0.2-0.9) 10/21/23 07:19 Eos # (Auto) 0.0 10^3/uL (0.0-0.8) 10/21/23 07:19 Baso # (Auto) 0.0 10^3/uL (0.0-0.1) 10/21/23 07:19 Nucleated RBC % (auto) 0 % 10/21/23 07:19 Nucleated RBCs # 0.0 /100WBC 10/21/23 07:19 Sodium 139 mmol/L (136-145) 10/21/23 07:19 Potassium 3.7 mmol/L (3.5-5.1) 10/21/23 07:19 Chloride 103 mmol/L (98-107) 10/21/23 07:19 Carbon Dioxide 25 mmol/L (22-29) 10/21/23 07:19 Anion Gap 14.7 (5-19) 10/21/23 07:19 BUN 17 mg/dL (6-20) 10/21/23 07:19 Creatinine 0.9 mg/dL (0.7-1.2) 10/21/23 07:19 GFR Calculation 86.7 mL/min (90-130) L 10/21/23 07:19 Glucose 114 mg/dL (65-115) 10/21/23 07:19 Calculated Osmolality 290 mOsm/kg (285-295) 10/21/23 07:19 Calcium 9.0 mg/dL (8.5-10.5) 10/21/23 07:19 Total Bilirubin 0.2 mg/dL (0.15-1.2) 10/21/23 07:19 AST 27 U/L (0-40) 10/21/23 07:19 ALT 29 U/L (0-41) 10/21/23 07:19 Alkaline Phosphatase 66 U/L (40-130) 10/21/23 07:19 Total Protein 6.9 g/dL (6.6-8.7) 10/21/23 07:19 Albumin 4.0 g/dL (3.5-5.2) 10/21/23 07:19 Globulin 2.9 g/dL (1.3-4.6) 10/21/23 07:19 Influenza Type A Ag negative (Negative) 10/21/23 07:19 Influenza Type B Ag negative (Negative) 10/21/23 07:19 SARS-CoV-2 Ag (Rapid) negative (Negative) 10/21/23 07:19 All radiology interpretation(s) finalized by discharge Other Data Assessment and plan: -Start Medrol and codeine cough medication here in the emergency room. Home on antibiotics for possible bronchitis versus an early pneumonia that is not seen on chest x-ray - Discharged home - Discussed findings and plan with patient. Answered any questions. - All laboratory values were reviewed and interpreted personally by myself, the ER physician - All imaging was reviewed and interpreted personally by myself, the ER physician. - Evaluation and treatment of this problem were appropriate in the emergency setting Discharge Plan Discharge Patient Disposition: Home Clinical Impression: Bronchitis Condition: Stable Prescriptions: New doxycycline hyclate 100 mg capsule 100 mg PO BID 7 Days Qty: 14 0RF prednisone 20 mg tablet 60 mg PO DAILY Qty: 20 0RF Rx Instructions: 3 tabs (60 mg) x 3 days. 2 tabs (40 mg) x 3 days. 1 tab (20 mg) x 3 days. 1/2 tab (10 mg) x 4 days codeine-guaifenesin 10-100 mg/5 mL liquid 5 ml PO Q6H PRN (Reason: cough) Qty: 120 0RF No Action fluticasone propion-salmeterol 250-50 mcg/dose blister with device 1 inh inhalation BID sildenafil 100 mg tablet 100 mg PO DAILY PRN (Reason: Sexual Activity) Rx Instructions: administer 30 minutes to 4 hours before activity alprazolam 1 mg tablet 1 mg PO ONCE PRN (Reason: Anxiety) Rx Instructions: Take one hour prior to flights atorvastatin [Lipitor] 20 mg Tablet 10 mg PO QPM hydrochlorothiazide 25 mg Tablet 25 mg PO DAILY celecoxib [Celebrex] 100 mg Capsule 100 mg PO DAILY PRN (Reason: unknown) Amoxil 500 mg Capsule 500 mg PO Q8H prednisone 10 mg Tablet 10 mg PO DAILY Discharge Orders: Discharge ED (Routine); Ordered 10/21/23 Ordered By: Kristin Deras Referrals: Alannah Davila FNP [Primary Care Provider] - (You have been screened and evaluated and felt safe for discharge. Health conditions do change or evolve sometimes and as such it is important that you follow up with your Primary Doctor to be re checked, 3-5 days is a general good time frame for follow up. You are always welcome to return to the ED for re assessment if your symptoms are worsening or you have new concerns) Discharge Diet: Usual diet Discharge Activity: Increase activity as tolerated Patient Instructions: Acute Bronchitis (ED), Opioid Safety Coding Level of Care Code ED Partnership Development Manager for Mitch Kelly
[2023-10-21 07:31] LABS: Basophils % 0.5 %; Eosinophils % 0.4 %; Lymphocytes # 0.8 10^3/uL (0.8-4.8); Lymphocytes % 10.4 %; Mean Corpuscular HGB Conc 32.9 g/dL (30-55); Mean Corpuscular Hemoglobin 29.5 pg (27-33); Mean Corpuscular Volume 89.7 fl (82-101); Mean Platelet Volume 10.2 fL (7.4-10.4); Monocytes # 0.7 10^3/uL (0.2-0.9); Neutrophils # 6.18 10^3/uL (1.8-7.7); Neutrophils % 79.2 %; Nucleated Red Blood Cells % 0 %; Platelet Count 186 10^3/cmm (157-399); Red Blood Count 4.57 10^6/uL (3.85-5.65); Red Cell Distribution Width 13.2 % (12.1-15.1)
[2023-10-21] MEDS: methylPREDNISolone sod succ 125 mg/2 mL INJ IVP (07:45)
[2023-10-21 07:46] LABS: Alanine Aminotransferase 29 U/L (0-41); Alkaline Phosphatase 66 U/L (40-130); Anion Gap 14.7 (5-19); Aspartate Amino Transferase 27 U/L (0-40); Blood Urea Nitrogen 17 mg/dL (6-20); Carbon Dioxide 25 mmol/L (22-29); Chloride 103 mmol/L (98-107); Creatinine Clr Calc Pharmacy 92.0151; Globulin 2.9 g/dL (1.3-4.6); Glomerular Filtration Rate 86.7 mL/min (90-130); Glucose 114 mg/dL (65-115); Osmolality Calculated 290 mOsm/kg (285-295); Potassium 3.7 mmol/L (3.5-5.1); Sodium 139 mmol/L (136-145); Total Bilirubin 0.2 mg/dL (0.15-1.2); Total Protein 6.9 g/dL (6.6-8.7)
[2023-10-21] MEDS: CODEINE PO (07:47)
[2023-10-21] MEDS: GUAIFENESIN PO (07:47)
[2023-10-21 08:08] VITALS: PULSE 88; RESP 18; O2SAT 93
[2023-10-21 08:08] LABS: Influenza A by IFA negative (Negative); Influenza B by IFA negative (Negative); SARS Covid-2 Antigen negative (Negative)
[2023-10-21] MEDS: albuterol 2.5 mg/3 mL Neb INHALATION (08:08)
[2023-10-21 08:13] VITALS: PULSE 89
== END 2023-10-21 08:54 | disposition home or self-care (01) ==
PROVIDERS: Emergency Provider Emergency Medicine; PCP Nurse Practitioner
DX: J40 Bronchitis, not specified as acute or chronic (principal); Z11.52 Encounter for screening for COVID-19; E78.5 Hyperlipidemia, unspecified; I10 Essential (primary) hypertension
CPT/HCPCS: 71045; 80053; 85025; 87426; 87804; 94640; 96374; 99284; J2919; J7613